=== PATIENT | female | born 1995 | race Two or more races ===

== ENCOUNTER 2024-05-26 10:22 | Emergency (ER) | payer OTHER ==
[~2024-05-26] VITALS: Ht 157.5 cm; Wt 54.4 kg
[2024-05-26 10:44] VITALS: BP 132/80; TEMP 98.6; O2SAT 100
== END 2024-05-26 10:44 | disposition home or self-care (01) ==
LOC: ER 10:36
DX: Z02.89 Encounter for other administrative examinations (principal)